=== PATIENT | male | born 1960 | race African-American/Black ===

== ENCOUNTER 2016-12-09 07:50 | Emergency (ER) | payer OTHER, MEDICAID ==
[~2016-12-09] VITALS: Ht 177.8 cm; Wt 80.0 kg
[~2016-12-09 07:50] MED LIST: HYDR-523 PO; KEPP500 PO; PHEN100C4 PO
[2016-12-09] MEDS ORDERED: LEVETIRACETAM 1,000 MG in SODIUM CHLORIDE 0.9% 100 ML IV ONE (08:30)
[2016-12-09 09:15] LABS: HEMATOCRIT. 43.5 % (42.0-52.0); MEAN CORPUSCULAR HEMOGLOBIN 33.5 pg (28.0-32.0); MEAN CORPUSCULAR HGB CONC 34.5 g/dL (31.0-37.0); MEAN CORPUSCULAR VOLUME 97.1 fL (80.0-94.0); MEAN PLATELET VOLUME 7.2 fl (7.4-10.4); PLATELET 281 x1000/uL (130-400); RED BLOOD CELL COUNT 4.48 mill/uL (4.7-6.1); RED CELL DISTRIBUTION WIDTH 13.7 % (11.6-14.6); WHITE BLOOD COUNT 10.8 x1000/uL (4.5-11.0)
[2016-12-09 09:21] LABS: DIFFERENTIAL COMMENT 1
[2016-12-09 09:25] LABS: ALANINE AMINOTRANSFERASE 56 IU/L (13-61); ALBUMIN 4.1 g/dL (3.4-5.0); ANION GAP 17; CALCIUM 9.8 mg/dL (8.5-10.1); CARBON DIOXIDE 25 mEq/L (21-32); CHLORIDE 100 mEq/L (98-107); INDEX HEMOLYSI 1 (1-3); INDEX ICTERIC 1 (1-4); INDEX LIPEMIC 1 (1-3); UREA NITROGEN BLOOD 7 mg/dL (7-21); eGFR > 60 mL/min (>60)
[2016-12-09 09:44] LABS: CARBAMAZEPINE < 0.5 ug/mL (4-12); PHENOBARBITAL < 2.1 ug/mL (15.0-40.0); PHENYTOIN < 0.4 ug/mL (10-20); VALPROIC ACID < 3.0 ug/mL (50-100)
[2016-12-09 09:46] LABS: NUCLEATED RED BLOOD CELLS 1 /100 WBC; PLATELET ESTIMATE NORMAL
[2016-12-09 10:18] VITALS: BP 146/84
== END 2016-12-09 10:56 | disposition home or self-care (01) ==
LOC: ER 07:54
DX: G40.909 Epilepsy, unspecified, not intractable, without status epilepticus (principal); F17.210 Nicotine dependence, cigarettes, uncomplicated; R41.82 Altered mental status, unspecified; M79.602 Pain in left arm; M79.601 Pain in right arm; Z91.14 Patient's other noncompliance with medication regimen
CPT/HCPCS: 36415; 70450; 72125; 80053; 80156; 80165; 80184; 80185; 85025; 96365; 99285; J1953; J7050

== ENCOUNTER 2017-03-13 04:36 | Emergency (ER) | payer OTHER, MEDICAID ==
[~2017-03-13] VITALS: Ht 167.6 cm; Wt 73.0 kg
[2017-03-13] MEDS ORDERED: LEVETIRACETAM 500MG PREMIX 100 ML IV ONE (05:30)
[2017-03-13 05:53] LABS: BASOPHILS % 1.1 % (0.0-2.0); EOSINOPHILS % 2.3 % (0.0-5.0); HEMATOCRIT. 40.3 % (42.0-52.0); HEMOGLOBIN. 13.8 g/dL (14.0-18.0); MEAN CORPUSCULAR HEMOGLOBIN 32.1 pg (28.0-32.0); MEAN CORPUSCULAR VOLUME 93.7 fL (80.0-94.0); MEAN PLATELET VOLUME 7.4 fl (7.4-10.4); MONOCYTES % 12.1 % (2.0-8.0); NEUTROPHILS % 62.5 % (40.0-76.0); PLATELET 245 x1000/uL (130-400); RED CELL DISTRIBUTION WIDTH 13.6 % (11.6-14.6)
[2017-03-13 06:09] LABS: CARBON DIOXIDE 30 mEq/L (21-32); CHLORIDE 104 mEq/L (98-107)
[2017-03-13 06:50] VITALS: BP 112/73
[2017-03-13 07:03] LABS: PHENYTOIN < 0.4 ug/mL (10-20)
== END 2017-03-13 08:09 | disposition home or self-care (01) ==
LOC: ER 04:36
DX: R56.9 Unspecified convulsions (principal); F12.10 Cannabis abuse, uncomplicated; Z91.14 Patient's other noncompliance with medication regimen
CPT/HCPCS: 36415; 80053; 80185; 82962; 85025; 96365; 99284; J1953